=== PATIENT | female | born 1950 | race Caucasian/White ===

== ENCOUNTER 2023-12-20 14:02 | Outpatient (CLI) | payer MEDICARE, SELFPAY ==
--- NOTE | 2023-12-20 14:30 | MR_ITS ---
[address] [address] Phone:?[phone] Fax:?[phone] Referring Physician Information: Dane Pino M.D. [id number] [facility] [address] Phone:?[phone] Fax:?[phone] Patient:Sadaf Miguel D.O.B:?1950 Sex:?Female Phone:?[phone] [facility] MRN:?[id number] Exam Date:?12/20/2023 EXAM: MRI of the RIGHT SHOULDER, without contrast CLINICAL HISTORY: Right shoulder pain. Suspect rotator cuff pathology. COMPARISONS: Plain radiographs 12/12/2023. TECHNICAL: MRI sequences of the right shoulder: Axials: PD, T2 Coronals: PD, STIR, T2 Sagittals: PD, T2 SEDATION: None CONTRAST: None FINDINGS: Bones: No fracture or suspicious bone marrow signal abnormality. Coracoacromial arch: Acromion: No os acromiale. Type II acromion. Acromiohumeral space: The bony distance is unremarkable. Acromioclavicular joint: Mild degenerative changes. Coracoclavicular ligament: The coracoclavicular ligament is intact. Rotator cuff muscles/tendons: Supraspinatus: There is a 1.0 cm in AP dimension by 0.8 cm in transverse dimension concealed slitlike intrasubstance tear within the supraspinatus tendon insertional footprint with 1-2 mm of retraction of torn tendon fibers from the cortical insertional surface superimposed upon mild supraspinatus tendinopathy best seen on coronal series 4 images 12 through 15. No muscular atrophy. Infraspinatus: Interstitial delamination within and mild tendinopathy of the infraspinatus tendon. No muscular atrophy. Teres minor: The teres minor tendon and muscle are intact. Subscapularis: Suspected approximately 2.0 cm in craniocaudad dimension greater than 50% partial-thickness undersurface tear of the subscapularis tendon with retraction of torn tendon fibers to the level of the glenoid although it must be noted that evaluation is compromised by marked motion artifact. No muscular atrophy. Labrum and glenohumeral joint: There is posterosuperior labral fraying. Trace glenohumeral joint effusion. The cartilage appears predominantly intact although evaluation is compromised by substantial motion artifact. No convincing evidence of capsular edema or thickening although evaluation is suboptimal because of lack of joint distention. Proximal biceps tendon, long head and short heads: Suspected fraying and moderate tendinopathy of the proximal long head of the biceps tendon although it must be noted that evaluation is compromised by marked motion artifact. The short head is intact. Bursae: Subacromial/subdeltoid: Slight bursitis. Subcoracoid: No convincing subcoracoid bursal thickening/bursitis. IMPRESSION: 1. 1.0 x 0.8 cm concealed slitlike intrasubstance tear within the supraspinatus tendon insertional footprint with 1-2 mm of retraction of torn tendon fibers from the cortical insertional surface. Mild underlying supraspinatus tendinopathy. 2. Suspected approximately 2.0 cm in craniocaudad dimension greater than 50% partial-thickness undersurface tear of the subscapularis tendon with retraction of torn tendon fibers to the level of the glenoid although it must be noted that evaluation is compromised by marked motion artifact. 3. Interstitial delamination within and mild tendinopathy of the infraspinatus tendon. 4. No rotator cuff muscular atrophy. 5. Suspected fraying and mild tendinopathy of the proximal long head of the biceps tendon although it must be noted that evaluation is compromised by marked motion artifact. 6. Slight subacromial/subdeltoid bursitis. 7. Posterosuperior labral fraying. 8. Trace glenohumeral joint effusion. RCB Electronically signed on 12/21/2023 8:49:00 AM by Get Maradiaga M.D.
== END 2023-12-20 14:03 | disposition home or self-care (01) ==
LOC: MRI 14:04
PROVIDERS: PCP Family Medicine; Visit Provider Orthopaedic Surgery
DX: M25.511 Pain in right shoulder (principal); M75.101 Unspecified rotator cuff tear or rupture of right shoulder, not specified as traumatic; M75.51 Bursitis of right shoulder; M25.411 Effusion, right shoulder
CPT/HCPCS: 73221

== ENCOUNTER 2024-01-19 08:28 | Day surgery (SDC) | payer MEDICARE, SELFPAY ==
[2024-01-19] VITALS (18 sets, daily range): BP systolic 98–114; BP diastolic 58–78; PULSE 42–57; RESP 12–16; TEMP 36.3–36.6; O2SAT 91–100; BMI 22.3
[2024-01-19] MEDS: ACETAMINOPHEN 500 MG TABLET 1000 MG PO (09:00)
[2024-01-19] MEDS: CELECOXIB 200 MG CAPSULE PO (09:00)
[2024-01-19] MEDS: LACTATED RINGERS 1000 ML 1,000 ML 100 ML IV ×2 (09:00→11:27)
[2024-01-19] MEDS: OXYCODONE (CR) 10 MG TAB.ER.12H PO (09:00)
[2024-01-19] MEDS: SODIUM CHLORIDE 0.9 % (FLUSH) 10 ML SYRINGE IVF (09:30)
[2024-01-19] MEDS: MIDAZOLAM HCL 1 MG/ML inj IVP (10:25)
[2024-01-19] MEDS: fentaNYL 100 MCG/2 ML inj IVP (10:25)
[2024-01-19] MEDS: CEFAZOLIN 2 GM INJ IVP (11:24)
--- NOTE | 2024-01-19 12:04 | P.NB_ITS ---
Nerve Block Nerve Block Time Seen by Provider: 10:30 Date Seen: 01/19/24 Type of block requested by surgeon for post-operative analgesia: supraclavicular Side: right Time out performed: Yes Verification of patient name: Yes Verification of date of : Yes Site marking: site marked Name of person performing procedure: Tito Continuous monitoring Was continuous monitoring of O2 sat, B/P, school lunch monitor, recorded every 15 minutes?: Yes Procedure Checklist: sterile prep, needles and gloves Ultrasound guided. Images saved: Yes Medications given in 5ml increments after negative aspiration: Ropivicaine %: 0.5 mL: 20 Needle gauge: 22 Decadron (mg): 10 Precedex (mcg): 25 Patient tolerated procedure well: Yes Block Charges Block Charge (with Pro Fee): Brachial Plexus Use of Ultrasound Machine for Block: Yes- US Guidance/pain block
--- NOTE | 2024-01-19 12:50 | P.ORPRC_ITS ---
Procedure Note Date of procedure: 01/19/24 Procedure: PREOPERATIVE DIAGNOSIS: Right shoulder rotator cuff tear, AC joint arthrosis, upper subscap tear, biceps tendinopathy POSTOPERATIVE DIAGNOSIS: Right shoulder rotator cuff tear, AC joint arthrosis, upper subscap tear, biceps tendinopathy NAME OF OPERATION: Right shoulder arthroscopic subacromial decompression, distal clavicle excision, mini open rotator cuff repair, subscap repair, biceps tenodesis SURGEON: Dane Pino MD RETIREMENT ASSISTANT: Radha Coombs PA-C ANESTHESIA: Supraclavicular block plus general endotracheal ESTIMATED BLOOD LOSS: 100 mL COMPLICATIONS: None SPECIMENS: None DRAINS: None PREOPERATIVE ANTIBIOTICS: Ancef 1 g INDICATIONS: The patient is a 73-year-old with a history of right shoulder pain secondary to the above diagnoses. Despite appropriate non operative management, they continue to have symptoms. Operative intervention was recommended. The risks, benefits and expected outcomes were discussed in detail. These included but were not limited to: Infection, bleeding, injury to blood vessel or nerve, venous thromboembolism. All questions were answered to their satisfaction. PROCEDURE: A supraclavicular block was placed by Anesthesia. General anesthesia was administered. The patient was placed in the high beach chair position. The right shoulder was prepped and draped in the usual sterile fashion. The glenohumeral joint was infiltrated with 20 mL of normal saline with epinephrine. The posterior portal was established, the arthroscope was introduced. The anterior portal was established, Diagnostic arthroscopy was performed with findings as follows: The biceps has a significant amount of intra-articular tendinopathy. The anterior, posterior and superior labrum has age-appropriate degenerative fraying. Articular surfaces on the humeral head and glenoid are normal. There are no loose bodies. The undersurface of the anterior insertion of the supraspinatus has a high-grade partial-thickness tear. There are white crystals in the glenohumeral joint consistent with gout or pseudogout or steroid injection. The biceps was tenotomized with the arthroscopic scissors, the stump was resected with the shaver. The labrum was debrided with the shaver. The undersurface of the supraspinatus was debrided with the shaver. The arthroscope was placed in the subacromial space, the lateral portal was established. The Arthrex [place] was used to dissect the acromion free. The CA ligament was recessed off the anterior acromion, the AC joint was exposed. The acromioplasty was performed with the bur in the posterior portal. The bur was then placed in the lateral portal and the lateral and anterior aspect of the acromion were resected. The undersurface of the distal clavicle was resected through the lateral portal. Finally, the bur was placed in the anterior portal and the remainder of the distal clavicle was resected for a total of 10 mm. An accessory anterolateral portal was placed. The subacromial/subdeltoid bursa was aggressively debrided. There is a full-thickness tear of the anterior supraspinatus, at the rotator interval. Arthroscopic instruments were removed. The accessory anterolateral portal was extended proximally and distally, subcutaneous dissection was taken with electrocautery to the deltoid. The deltoid was divided in line with its fibers. The static retractor was placed. The subacromial/subdeltoid bursa was debrided with the Meng scissors. The biceps was dissected out of groove and secured with a FiberLoop suture. The upper border of the subscap was taken down with electrocautery. The lesser tuberosity was debrided to punctate bleeding bone with the bur. Likewise, the far anterior insertion of the supraspinatus was debrided with the Lempert rongeur. A suture tape was placed in the upper subscap in an inverted mattress fashion. A corkscrew anchor was placed just off the articular surface at the anterior margin of supraspinatus insertion. The suture tape limbs on the SwiveLock anchor were passed through the leading edge of the supraspinatus and upper border of the subscap resulting in 2 rotator interval margin convergence sutures to bone. We then placed the SwiveLock anchor in the upper, lateral border of the lesser tuberosity to secure the subscap repair and biceps tenodesis. The anchor in the eyelet was unloaded. Finally, 2 more margin convergence sutures were placed medially, using a #2 FiberWire. This provides an anatomic, watertight repair of the rotator cuff. There is no tension on the repair with the shoulder at 0? abduction. The wound was irrigated with normal saline off the pump. The deltoid was repaired with an 0 Vicryl in an interrupted [id number] fashion. Subcutaneous tissues were closed with a 3-0 Vicryl. Skin was closed with a 3-0 Monocryl in a subcuticular fashion. A dry dressing, polar care and sling were applied. Sponge and needle counts were correct x2. The patient tolerated the procedure well. There were no apparent complications. They were carefully transferred to the hospital bed and taken to the postanesthesia care unit in satisfactory condition. PLAN: The patient will be discharged to home. No active range of motion of the shoulder will be allowed for 6 weeks postoperatively. They can work on active range of motion of the elbow, wrist and fingers. They will follow up in the office next week for a wound check and an AP and transscapular Y-view of the shoulder prior to being seen.
--- NOTE | 2024-01-19 13:25 | W.ANESCHARGE ---
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
[2024-01-19] MEDS: METOCLOPRAMIDE HCL 5 MG/ML INJ 10 MG IVP (14:07)
--- NOTE | 2024-01-19 14:39 | SUR.PREOP ---
PREOP ANESTHESIA BLOCK TIMEOUT COMPLETED PER MDA/RN AT 1025 CONFIRMING PATIENT/PROCEDURE/LATERALITY
[2024-01-19] MEDS: diphenhydrAMINE 50 MG/ML inj 25 MG IVP (15:07)
== END 2024-01-19 16:15 | disposition home or self-care (01) ==
PROVIDERS: PCP Family Medicine; Visit Provider Orthopaedic Surgery
PROC: (CPT 23412; principal; 2024-01-19 10:30)
DX: M75.101 Unspecified rotator cuff tear or rupture of right shoulder, not specified as traumatic (principal); M19.011 Primary osteoarthritis, right shoulder; M75.21 Bicipital tendinitis, right shoulder; G89.18 Other acute postprocedural pain
CPT/HCPCS: 29826; 29824; 29828; 23412; 01630; 64415; 76942; 99100; A9270; C1713; J0690; J1100; J1200; J2250; J2405; J2704; J2710; J2765; J2795; J3010; J7120; L3670

== ENCOUNTER 2024-05-10 13:00 | Outpatient (RCR) | payer MEDICARE, SELFPAY ==
--- NOTE | 2024-01-31 13:13 | PT.OPEX ---
PT [place] Outpatient Eval PT [facility] Outpatient Eval Start: 01/31/24 08:54 Freq: Status: Active Protocol: Document 01/31/24 08:59 YOSHI (Rec: 01/31/24 13:10 YOSHI [id number]) E-signed By Patricio Mendoza PT Physical Therapy Outpatient Evaluation Insurance Information Insurance Name Medicare B Medical Diagnosis Right shoulder mini open RCR, subscapularis repair, biceps tenodesis,SAD (01/19/24) Treating Diagnosis Right shoulder pain Right shoulder weakness Decreased right shoulder ROM Referring MD Pino Subjective Subjective Pt. reports undergoing a RCR on 01/19/24 due to multiple injuries while working at a [employer] that involved a lot of lifting overhead etc. She is right handed and lives alone which has made it challenging, but her son does live near for help as needed. She has been having a hard time sleeping due to pain, either in recliner or her bed. She has also been having right sided upper back and neck spasms which has been limiting . Overall her shoulder seems to be doing well since the surgery. She isn't taking pain meds other than Tylenol and ibuprofen. Good health history overall without any prior orthopedic injuries or surgeries. Pain Comments 5 Date of Surgery (If applicable) 01/19/24 Current Work Status Retired Preferred Name Kylah Objective Other/Pertinent Objective Left shoulder ROM is WNL Left shoulder strength is WNL Right shoulder PROM: flexion 120 degrees; ER to neutral (subscap repair) Abd to 90 degrees Right hand/wrist/elbow ROM WNL forward shoulder posture Assessment Assessment/Impression Objectively, pt. demonstrates; normal left shoulder AROM and strength; rounded shoulder posture; hypertonus/spasm of right levator scapula and upper trap muscles; Good right GHJ capsular mobility; good right elbow/wrist/hand ROM and strength; and limited right shoulder ROM as expected following RCR surgery on . She would benefit from skilled therapy working on PROM, AAROM, AROM, and strengthening per protocol guided by Ortho team. Primary Functional Limitations sleeping, reaching, lifting, using right arm for ADL's Plan of Care Rehabilitation Potential Excellent Physical Therapy Goals 1. Pt. will be indep. with HEP for self maintenance in 12 weeks. 2. Pt. will demonstrate improved shoulder PROM to WNL in 8 weeks. 3. Pt. will be able to raise arm overhead for ADL's without difficulty in 12 weeks. 4. Pt. will return to normal ADL's using right arm in 12 weeks. Coordination/Communication With Referral Source Treatment Plan/Direct Interventions Joint Mobilization,Manual Therapy,Neuromuscular Re-ed, Self-Care/Home Management, Therapeutic Activities, Therapeutic Exercises Frequency/Duration 2x/week progressing to weekly for 12-16 weeks. Patient Will Be Discharged From Therapy Independent w/HEP, Independently Progressing Evaluation Billing Complexity Low Certification Information Initial Certification Date 01/31/24 Ending Certification Date 04/25/24 Provider Signature Shows Agreement With POC & Medical Necessity Physician Signature & Date Requested Please Sign/Date Here Physician Comment/Change : Physician NPI Number #
== END 2024-05-10 13:46 | disposition home or self-care (01) ==
PROVIDERS: PCP Family Medicine; Visit Provider Orthopaedic Surgery
DX: Z51.89 Encounter for other specified aftercare (principal); Z98.890 Other specified postprocedural states; M25.511 Pain in right shoulder; Z74.09 Other reduced mobility; R29.898 Other symptoms and signs involving the musculoskeletal system
CPT/HCPCS: 97110; 97140; 97161

== ENCOUNTER 2025-03-20 13:49 | Outpatient (RCR) | payer MEDICARE, SELFPAY ==
--- NOTE | 2025-03-20 17:09 | PT.OPE ---
PT [place] Outpatient Eval PT [facility] Outpatient Eval Start: 03/20/25 11:51 Freq: Status: Active Protocol: Document 03/20/25 16:01 LSL (Rec: 03/20/25 16:58 LSL [id number]) E-signed By Jennifer Abbott PT Physical Therapy Outpatient Evaluation Insurance Information Recert Due Date 06/18/25 Insurance Name Medicare B,Blue Cross/Blue Shield Insurance Information/Comments Advantage Plan Medical Diagnosis unilateral primary OA, L knee M17.12 PF OA Treating Diagnosis pain Imaging Report Information XRAY IMAGIN03/13/25 AP, Lateral and Ricketts views of the left knee were obtained today. These show end-stage patellofemoral joint osteoarthritis with lateral tilt, near [id number]. There is patellofemoral osteophytic spurring. Medial and lateral joint spaces normal without narrowing or osteophytic spurring. Referring MD Pino Subjective Subjective Pt. c/o L knee pain for multiple for which she has had injections at different times and her last being on 03/13/25 . It's helped some but not quite as much as she hoped for so far. Pt. reports she is not limited in activities but does hurt. Pain is a constant ache in the medial patellofemoral joint. She rides her [place] every day for 30-60 minutes and it feels fine, but then hurts to do a HS stretch afterward. Sometimes I use ibuprofen to help manage it. I normally take ibuprofen before bed to help all my aches and pains. I also do a lot of walking with my dog. At least 4 times/day and a couple of them are long ones. I hope to get out golfing eventually. Pain Comments 10 worst 210 best Date of Last Physician Visit 03/13/25 Current Work Status Retired Precautions Treatment Precautions/Contraindications Pt. had stage 1A removed from R lateral thigh a month ago, and nose was done yesterday. Weight Bearing Status Full Weight Bearing Therapy Limitations/Systems Review Not Limited Objective Range of Motion AROM knees R 0/0/141 L 2/0/131 Strength B HS and quads 5/5 L hip abduction 4-/5, hip extension 4/5, R hip abduction 5/5, hip extension 4/5 Trunk - upper abdominals 2/5 Palpation distal ITB insertion tender, medial patellofemoral joint tenderness if patella shifted laterally Balance & Gait GAIT - Intact Posture B patella lateral tilted and glided and ER, L moderately more tilted Other/Pertinent Objective Joint Play - patellar mobility normal Functional Test Performed & Score squat and lunge functional ROM without significant symptoms Assessment Assessment/Impression Pt. is a high functioning pleasant 74 y/o who presents with R knee pain secondary to patellofemoral OA. She has 10 less degrees of left knee flexion compared to right and has week gluts and abdominals. Bilateral patellae sit laterally, however the left is more significant. She will benefit from therex to improve her core strength, NMES for balance and pt. education to learn taping techniques if they are helpful for future self management. Primary Functional Limitations squatting to get things off low cabinets Plan of Care Rehabilitation Potential Excellent Physical Therapy Goals SHORT TERM GOALS: (3 weeks) 1. Pt. to report decrease in pain on stairs to less than 3/ 10. 2. Pt. to demonstrate improved knee flexion to 140 degrees. SUBSTATION OPERATOR GOALS: (6 weeks) 1. Pt. to show glut strength of 5/5 and upper abdominal strength of 3/5. 2. Pt. able to squat symmetrically to get item off lower shelf. Coordination/Communication With Referral Source Treatment Plan/Direct Interventions Manual Therapy,Neuromuscular Re-ed,Therapeutic Exercises Frequency/Duration 1x/week 6 weeks Patient Will Be Discharged From Therapy Skills [facility],Independent w/ HEP,Independently Progressing Evaluation Billing Untimed Code Treatment Minutes 25 Complexity Low Certification Information Initial Certification Date 03/20/25 Ending Certification Date 06/18/25 Provider Signature Required Yes Provider Signature Shows Agreement With POC & Medical Necessity Physician NPI Number Write NPI# Here Physician Comment/Change : Physician Signature & Date Requested Please Sign/Date Here
--- NOTE | 2025-03-21 08:41 | OT.OPOE ---
OT Outpatient Ortho Eval OT Outpatient Ortho Eval* Start: 03/20/25 07:58 Freq: Status: Active Protocol: Document 03/20/25 07:58 MAIDA (Rec: 03/20/25 14:55 [id number] [id number]) E-signed By Radha Lay, OTR/L, CLT OT OP Ortho Eval Details Complexity Complexity Medium Insurance Information Insurance Information Blue Cross/Blue Shield, Medicare B Other Insurance [facility] Outpatient History/Precautions Current Condition/Medical Diagnosis Referring Provider Dr. 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 M18.12 - Unilateral primary osteoarthritis of first carpometacarpal joint, left hand (ICD-10) Osteoarthritis of (CMC) joint of right thumb. M18.11 - Unilateral primary osteoarthritis of first carpometacarpal joint, right hand (ICD-10) Osteoarthritis of left knee ( Acute) M17.12 - Unilateral primary osteoarthritis, left knee (ICD-10) Osteoarthritis of right hip ( Acute) M16.11 - Unilateral primary osteoarthritis, right hip (ICD-10) Fracture of femoral neck, right, closed. S72.001A - Fracture of unspecified part of neck of right femur, initial encounter for closed fracture Greater trochanteric bursitis of right hip. M70.61 - Trochanteric bursitis, right hip (ICD-10) J44.9 - Chronic obstructive pulmonary disease, unspecified (ICD-10) C43.9 - Malignant melanoma of skin, unspecified (ICD-10) E78.5 - Hyperlipidemia, unspecified (ICD-10) M85.80 - Other specified disorders of bone density and structure, unspecified site ( ICD-10) Medical/Functional History Medical History Reviewed Yes Prior Level of Function/Mobility Patient is a retired, single ( ) female who resides in [place]. Her PCP is Dr. Jessica Sharma Hobbies/activities that keep her busy include: Golf is her summer passion, walking, using her [employer], very active person (she has a dog) Social History Employment Status Retired Current Occupation Patient worked at [employer] for 24 years, factory Hobbies caring for her dog Fitness being active (fitness), walking (20,000 steps per day) Ortho Subjective Subjective Subjective This 74 year old right hand dominant female presented to the Ortho clinic on 03/13/25 with a new problem of left elbow pain. She reports anterior aching pain. She has noted that her elbow is [place] and does not fully extend. It has been this way for many years. However, 4 weeks ago she felt a pinching sensation in the back of her elbow. Ever since then it has been painful. Therapist has reviewed the provider note that states: With regard to her left elbow I think her symptoms are extra-articular in the soft tissues about the olecranon and triceps. I do not think this represents triceps tendon tear. Therefore, we elected to proceed with some occupational therapy. I will plan to see her back as symptoms warrant. *Of note, patient had a knee injection (left knee) last week and will have a PT EVAL later this afternoon to address her L knee pain. Pain Assessment Pain Pain Yes Pain Comments 3/10 L elbow Range of Motion and Strength Elbow/Forearm Range of Motion and Strength Elbow/Forearm Range of Motion and Left elbow: Strength Range of motion in the L elbow is from 30-140 degrees of flexion, 90? of pronation ( bilaterally) and 95 degrees of supination (bilaterally) Her triceps insertion is palpably intact and is tender laterally. Triceps strength is 4+/5 Biceps strength is 4+/5 Hand Pinch/Professor Of Historical Theology Strength Hand Pinch/Professor Of Historical Theology Strength Hand Pinch/Professor Of Historical Theology Strength Left Hand,Right Hand Left Hand Professor Of Historical Theology Strength Position 1 in Elbow 37 Flexion (lbs) Professor Of Historical Theology Strength Position 2 in Elbow 40 Extension (lbs) Lateral Pinch Strength (lbs) 10 Three Point Pinch (lbs) 7 Right Hand Professor Of Historical Theology Strength Position 1 in Elbow 35 Flexion (lbs) Professor Of Historical Theology Strength Position 2 in Elbow 39 Extension (lbs) Lateral Pinch Strength (lbs) 10 Three Point Pinch (lbs) 6 OT Objective Data Observations/Posture/Limb Appearance Objective Observations Left elbow: No surgical scars, no warmth or erythema, no effusion. Skin/Wounds/Edema Comments There is no notable edema present in the L UE Sensation Sensation Assessment Summary Comments L UE Sensation is intact to temperature (hot/cold), pressure & light touch Patient denies paresthesia OT Problems Problems Problems Decreased Strength,Decreased Range of Motion,Pain,Sensory Sensitivity,Lifting,Gripping, Pinching Problems Comments Patient will sometimes wake up in the middle of the night with L elbow pain. Other Problems Sleeping Patient Potential Good Assessment Assessment Assessment This 74 year old right hand dominant female presented to the Ortho clinic on 03/13/25 with a new problem of left elbow pain. She reports anterior aching pain. She has noted that her elbow is [place] and does not fully extend. It has been this way for many years. However, 4 weeks ago she felt a pinching sensation in the back of her elbow. Ever since then it has been painful. Therapist has reviewed the provider note that states: With regard to her left elbow I think her symptoms are extra-articular in the soft tissues about the olecranon and triceps. I do not think this represents triceps tendon tear. Therefore, we elected to proceed with some occupational therapy. I will plan to see her back as symptoms warrant. Patient was pleasant, alert, orientated, asked great questions in session, was an active listener to information presented and showed signs of motivation/willingness to follow the presented protocol & HEP. PLAN: treat pain symptoms with the use of modalities as indicated, manual therapy for progressing L elbow AROM, development of an individualized HEP, patient education on the progression of treatment and activity modifications while healing. While patient is a very active person, doing on average 15, 000-20,000 steps per day, her tallow pumper/pinch strengths are below the norms for her gender/age. Discussed the importance of adding strength training into her fitness routines. Occupational Therapy Treatment Plan - OP Potential Rehabilitation Potential Good Barriers Barriers to goal attainment None noted Set Goals Goals Set with Patient Yes Goals Goals 1. After 3 treatment sessions, patient will be able to verbalize 4 adaptive strategies to protect joint integrity to have less pain with ADL/IADL & leisure activities. 2. Patient will actively participate in her HEP in order to promote healthy tendon gliding and muscle efficiency in the L elbow: decrease adhesions and promote strong union of sutured tendons so that patient can resume L UE to normal, pain- free function. 3. Patient will be discharged from therapy once she has achieved >90% of normal AROM and Strength in the L UE. Target Date 8 weeks Treatment Plan Treatment Plan Evaluation,Edema Control, Iontophoresis with Dexamethasone Sodium Phosphate 1 mL (4mg per mL),Joint Mobilization,Manual Therapy, Ultrasound,Therapeutic Exercise,Self Care/Home Management,Education Expected Frequency 1x Week Expected Duration 6-8 Weeks Home Program Home Program Home Program Initiated Home Program Specifics Over the door pulleys -handout printed, $9 dollars off [employer] Stretching exercises that promote extension of the L elbow, placing the arm in a pillow care to create a non friction environment, than while in standing raise the arm vertical against the wall, then horizontal with patient holding each stretch for 45 seconds. Certification Certification Statement I Certify That: Therapy Services Provided, Therapy Plan Established, Therapy Plan Reviewed Certification Information Clinic ID # [id number] Initial Certification Date 03/20/25 Recertification Due Date 06/18/25 Provider Signature Required Yes Provider Signature Shows Agreement With POC & Medical Necessity Physician NPI Number Write NPI# Here Physician Comment/Change Comment or Changes Physician Signature & Date Requested Please Sign/Date Here
== END 2025-06-20 09:05 | disposition home or self-care (01) ==
PROVIDERS: PCP Family Medicine; Visit Provider Orthopaedic Surgery
DX: M19.022 Primary osteoarthritis, left elbow (principal); M17.12 Unilateral primary osteoarthritis, left knee; Z51.89 Encounter for other specified aftercare
CPT/HCPCS: 97110; 97161; 97166; X5282